=== PATIENT | female | born 1995 | race Caucasian/White ===

== ENCOUNTER 2020-03-27 16:14 | Emergency (ER) | payer OTHER ==
[~2020-03-27] VITALS: Ht 162.6 cm; Wt 29.8 kg
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
[2020-03-27] MEDS ORDERED: KETOROLAC 60 MG/2 ML ONE (17:12)
--- NOTE | 2020-03-27 17:22 | NUR ---
PT MEDICATED PER MAR. NADN. IZQUIERDO.
[2020-03-27] MEDS ORDERED: KETOROLAC 30 MG/1 ML IM ONE (17:30)
--- NOTE | 2020-03-27 17:57 | NUR ---
PT TAKEN TO CT IN STABLE CONDITION.
[2020-03-27 18:37] VITALS: BP 126/68
--- NOTE | 2020-03-27 18:37 | NUR ---
PT RESTING ON GURNEY. NADN. IZQUIERDO.
--- NOTE | 2020-03-27 18:50 | NUR ---
REPORT FROM DEIDRE ZURITA. PT AT XRAY
--- NOTE | 2020-03-27 18:52 | NUR ---
REPORT GIVEN TO ARGELIA GLOVER RN.
--- NOTE | 2020-03-27 19:45 | NUR ---
Patient given discharge instructions and they have confirmed that they understand the instructions. Patient ambulatory with steady gait.
== END 2020-03-27 19:47 ==
LOC: ED 18:28
DX: S16.1XXA Strain of muscle, fascia and tendon at neck level, initial encounter (principal); G89.11 Acute pain due to trauma; M54.5 Low back pain; R51 Headache; R11.2 Nausea with vomiting, unspecified; J45.909 Unspecified asthma, uncomplicated; V49.49XA Driver injured in collision with other motor vehicles in traffic accident, initial encounter; W22.10XA Striking against or struck by unspecified automobile airbag, initial encounter; Y93.89 Activity, other specified; Y92.488 Other paved roadways as the place of occurrence of the external cause; Y99.8 Other external cause status
CPT/HCPCS: 70450; 72072; 72110; 72125; 96372; 99285; J1885